=== PATIENT | female | born 1990 | race Asian ===

== ENCOUNTER 2017-06-21 18:24 | Emergency (ER) | payer BC ==
[~2017-06-21] VITALS: Ht 162.6 cm; Wt 70.3 kg
[2017-06-21 18:29] VITALS: Ht 162.6 cm; Wt 70.3 kg
[2017-06-21 20:28] VITALS: BP 146/104
== END 2017-06-21 20:28 | disposition home or self-care (01) ==
LOC: ED 18:24 → EDBD 18:24 → ED 20:28
DX: T23.291A Burn of second degree of multiple sites of right wrist and hand, initial encounter (principal); T22.10XA Burn of first degree of shoulder and upper limb, except wrist and hand, unspecified site, initial encounter; T23.102A Burn of first degree of left hand, unspecified site, initial encounter; T24.112A Burn of first degree of left thigh, initial encounter; T20.16XA Burn of first degree of forehead and cheek, initial encounter; T31.0 Burns involving less than 10% of body surface; X10.2XXA Contact with fats and cooking oils, initial encounter; Y99.8 Other external cause status; Y93.G3 Activity, cooking and baking; Y92.89 Other specified places as the place of occurrence of the external cause
CPT/HCPCS: J2270; J3010; Q0162